=== PATIENT | male | born 2000 | race Caucasian/White ===

== ENCOUNTER 2018-05-09 21:35 | Emergency (ER) | payer SELFPAY, OTHER ==
[2018-05-10] MEDS: LIDOCAINE 1% (MDV) 10 ML INJ INJ (00:39)
== END 2018-05-10 01:18 | disposition home or self-care (01) ==
LOC: FTE 21:35
DX: L02.31 Cutaneous abscess of buttock (principal)
CPT/HCPCS: 10060; 99284-25